=== PATIENT | male | born 2000 | race Caucasian/White ===

== ENCOUNTER → 2025-01-05 | Outpatient (CLI) | payer OTHER ==
--- NOTE | 2025-01-08 12:19 | HMCIMG ---
EXAMINATION: NONCONTRAST MR EXAMINATION OF THE RIGHT KNEE. CLINICAL HISTORY: Pain. COMPARISON: None provided. TECHNIQUE: Multiplanar, multisequence MR imaging of the right knee. FINDINGS: In the medial compartment, the meniscus is intact. There is no focal chondrosis or subchondral bone marrow edema. In the lateral compartment, the meniscus is intact. There is no focal chondrosis or subchondral bone marrow edema. In the patellofemoral compartment, there is no focal chondrosis or subchondral bone marrow edema. The anterior and posterior cruciate ligaments are intact. Iliotibial band, fibular collateral ligament, biceps femoris tendon, conjoined tendon, and popliteus tendon are intact. The medial collateral ligament is intact. The extensor mechanism and patellar retinaculum are intact. There is no knee joint effusion. There is no bone marrow signal abnormality seen to suggest fracture, avascular necrosis, or osteomyelitis. The musculature surrounding the knee demonstrate normal bulk and signal. IMPRESSION: 1. No acute findings. /[place]
== END | disposition home or self-care (01) ==
LOC: RAH 09:32
PROVIDERS: ATTEND Family Medicine
DX: M25.541 Pain in joints of right hand (principal); G89.29 Other chronic pain; M25.561 Pain in right knee
CPT/HCPCS: 73721